=== PATIENT | female | born 1940 | race Two or more races ===

== ENCOUNTER 2019-01-29 09:34 | Emergency (ER) | payer OTHER ==
[~2019-01-29] VITALS: Ht 152.4 cm; Wt 63.5 kg
[2019-01-29 10:38] LABS: Urine Bacteria MOD /hpf (None Seen); Urine Blood Negative /uL (Negative); Urine Specific Gravity 1.016 (1.001-1.035); Urine WBC 181 /hpf (0 - 5); Urine WBC Clumps PRESENT /hpf (None Seen)
[2019-01-29 11:08] VITALS: BP 143/42
[2019-01-29 11:25] LABS: Basophils # (auto) 0 uL; Basophils % (auto) 0.7 % (0.0-2.0); Eosinophils # (auto) 0.2 uL; Eosinophils % (auto) 2.4 % (0.0-7.0); Hematocrit 37.2 % (36.0-46.0); Lymphocytes # (auto) 1.3 uL; Lymphocytes % (auto) 19.8 % (10.0-50.0); Mean Corpuscular Hemoglobin 32.5 pg (28.0-32.0); Mean Corpuscular Hgb Conc. 34.8 g/dL (32.0-36.0); Mean Corpuscular Volume 93.5 fL (80.0-100.0); Monocytes # (auto) 0.5 uL; Neutrophils # (auto) 4.5 uL; Neutrophils % (auto) 69.1 % (37.0-80.0); Nucleated Red Blood Cells % 0.1 %; Platelet Count (auto) 179 10^3/uL (140-450); Red Blood Cells 3.98 10^6/uL (4.0-5.20); Red Cell Distribution Width 12.8 % (11.8-14.3); White Blood Cell 6.5 10^3/uL (4.4-10.8)
[2019-01-29 11:42] LABS: Albumin 3.5 g/dL (3.4-5.0); Potassium 4.7 mmol/L (3.5-5.1)
[2019-01-29 11:45] LABS: BUN/Creatinine Ratio 26.4; Bilirubin, Total 0.3 mg/dL (0.2-1.0); Total Protein 8.1 g/dL (6.4-8.2)
== END 2019-01-29 12:20 | disposition home or self-care (01) ==
LOC: ER 09:40
DX: N39.0 Urinary tract infection, site not specified (principal); E11.9 Type 2 diabetes mellitus without complications; I10 Essential (primary) hypertension; Z90.49 Acquired absence of other specified parts of digestive tract
CPT/HCPCS: 36415; 80053; 81001; 85025

== ENCOUNTER 2020-01-07 12:30 | Inpatient (IN) | payer OTHER ==
[~2020-01-07] VITALS: Ht 154.9 cm; Wt 67.4 kg
[2020-01-07] MEDS ORDERED: SODIUM CHLORIDE 0.9% 500 ML IV ONE (12:55)
[2020-01-07 14:44] LABS: Basophils # (auto) 0 10 ^3/uL (0-0.2); Basophils % (auto) 0.1 % (0.0-2.0); Eosinophils # (auto) 0.2 10 ^3/uL (0-0.8); Eosinophils % (auto) 2.4 % (0.0-7.0); Hematocrit 36.1 % (36.0-46.0); Hemoglobin 12.4 g/dL (12.2-16.2); Lymphocytes % (auto) 11.5 % (10.0-50.0); Mean Corpuscular Hemoglobin 31.9 pg (28.0-32.0); Mean Corpuscular Hgb Conc. 34.3 g/dL (32.0-36.0); Monocytes # (auto) 0.6 10 ^3/uL (0-1.3); Monocytes % (auto) 6.6 % (0.0-12.0); Neutrophils # (auto) 6.7 10 ^3/uL (1.6-8.6); Neutrophils % (auto) 79.4 % (37.0-80.0); Platelet Count (auto) 229 10^3/uL (140-450); Red Blood Cells 3.88 10^6/uL (4.0-5.20); Red Cell Distribution Width 13.4 % (11.8-14.3); White Blood Cell 8.4 10^3/uL (4.4-10.8)
[2020-01-07 14:47] LABS: Alanine Aminotransferase 37 U/L (13-56); Albumin 2.8 g/dL (3.4-5.0); Anion Gap 6 (5-15); Aspartate Aminotransferase 37 U/L (15-37); Blood Urea Nitrogen 29 mg/dL (7-18); Calcium 8.6 mg/dL (8.5-10.1); Carbon Dioxide 25 mmol/L (21-32); Chloride 101 mmol/L (98-107); GFR African American 55 mL/min; GFR Non-African American 45 mL/min; Glucose 226 mg/dL (74-106); Potassium 4.5 mmol/L (3.5-5.1); Sodium 132 mmol/L (136-145)
[2020-01-07 14:52] LABS: Alkaline Phosphatase 178 U/L (45-117); Bilirubin, Total 0.4 mg/dL (0.2-1.0); Total Protein 8.5 g/dL (6.4-8.2)
[2020-01-07] MEDS ORDERED: MORPHINE SULF INJ 2 MG/ML SYRINGE 1ML IV PRN ×2 (16:30)
[2020-01-07] MEDS ORDERED: HYDROcodone-ACET 5/325MG TAB PO PRN (16:30)
[2020-01-07] MEDS ORDERED: DEXTROSE (50%) 50ML SYRG IV PRN (16:30)
[2020-01-07] MEDS ORDERED: ONDANSETRON HCL 4 MG/2 ML VIAL IV PRN (16:30)
[2020-01-07] MEDS ORDERED: NITROGLYCERIN 0.4 MG SL TAB SL PRN (16:30)
[2020-01-07 16:58] LABS: Cholesterol 117 mg/dL (< 200); Triglycerides 115 mg/dL (< 150)
[2020-01-07 17:00] LABS: HDL Cholesterol 43 mg/dL (40-59); LDL Cholesterol 59 mg/dL (< 100)
[2020-01-07] MEDS: SODIUM CHLORIDE 0.9% 1,000 ML IV SCH (19:08)
[2020-01-07] MEDS: InsuLIN REG 1unit/0.01ml Soln (100units/ml) SC SCH ×2 (19:23→21:52)
[2020-01-07] MEDS: ACCU-CHEK COMFORT CURVE STRIP VI SCH ×2 (19:23→21:49)
[2020-01-07] MEDS ORDERED: TRAZ50TA2 PO (22:25)
[2020-01-07] MEDS ORDERED: LEVO50TA7 PO (22:25)
[2020-01-07] MEDS ORDERED: LOVA20TA4 PO (22:25)
[2020-01-07 22:27] VITALS: BP 127/50
[2020-01-07 23:19] LABS: Urine Blood Negative /uL (Negative)
[2020-01-07 23:39] LABS: Urine Bacteria MOD /hpf (None Seen); Urine WBC 122 /hpf (0 - 5); Urine WBC Clumps PRESENT /hpf (None Seen)
[2020-01-08 05:30] VITALS: BP 126/59
[2020-01-08] MEDS: SODIUM CHLORIDE 0.9% 1,000 ML IV SCH ×2 (05:35→10:33)
[2020-01-08] MEDS: ACCU-CHEK COMFORT CURVE STRIP VI SCH ×4 (06:31→21:35)
[2020-01-08] MEDS: InsuLIN REG 1unit/0.01ml Soln (100units/ml) SC SCH ×4 (06:32→21:49)
[2020-01-08 07:58] LABS: Basophils # (auto) 0 10 ^3/uL (0-0.2); Basophils % (auto) 0.2 % (0.0-2.0); Eosinophils # (auto) 0.3 10 ^3/uL (0-0.8); Eosinophils % (auto) 4.4 % (0.0-7.0); Hematocrit 32.9 % (36.0-46.0); Hemoglobin 11.5 g/dL (12.2-16.2); Lymphocytes # (auto) 1.5 10 ^3/uL (0.4-5.4); Mean Corpuscular Hemoglobin 31.9 pg (28.0-32.0); Mean Corpuscular Hgb Conc. 35.1 g/dL (32.0-36.0); Mean Corpuscular Volume 90.8 fL (80.0-100.0); Monocytes # (auto) 0.7 10 ^3/uL (0-1.3); Monocytes % (auto) 9.5 % (0.0-12.0); Neutrophils # (auto) 4.4 10 ^3/uL (1.6-8.6); Neutrophils % (auto) 63.9 % (37.0-80.0); Platelet Count (auto) 250 10^3/uL (140-450); Red Blood Cells 3.62 10^6/uL (4.0-5.20); Red Cell Distribution Width 13.7 % (11.8-14.3); White Blood Cell 6.9 10^3/uL (4.4-10.8)
[2020-01-08 08:14] LABS: BUN/Creatinine Ratio 18.7; Calcium 8.5 mg/dL (8.5-10.1)
[2020-01-08 09:00] VITALS: BP 144/60
[2020-01-08] MEDS: PANTOPRAZOLE 40 MG TAB PO SCH (10:12)
[2020-01-08] MEDS: cefTRIAXone 1GM/50ML D5W 50 ML IV SCH (10:12)
[2020-01-08 13:00] VITALS: BP 145/64
[2020-01-08 17:00] VITALS: BP_SYST 127; BP_SYST 134; BP_DIAS 53; BP_DIAS 58; BP_DIAS 70
[2020-01-08] MEDS: INSULIN LANTUS (GLARGINE) 1 /0.01ml (100units/ml) SC SCH (21:49)
[2020-01-08 22:00] VITALS: BP 154/57
[2020-01-09 05:00] VITALS: BP 146/67
[2020-01-09 05:56] LABS: BUN/Creatinine Ratio 17.4; Calcium 8.6 mg/dL (8.5-10.1); Potassium 3.8 mmol/L (3.5-5.1)
[2020-01-09] MEDS: InsuLIN REG 1unit/0.01ml Soln (100units/ml) SC SCH ×4 (06:56→22:16)
[2020-01-09] MEDS: ACCU-CHEK COMFORT CURVE STRIP VI SCH ×4 (06:56→22:17)
[2020-01-09] MEDS: SODIUM CHLORIDE 0.9% 1,000 ML IV SCH ×2 (06:56→22:22)
[2020-01-09] MEDS: PANTOPRAZOLE 40 MG TAB PO SCH (08:33)
[2020-01-09] MEDS: cefTRIAXone 1GM/50ML D5W 50 ML IV SCH (08:33)
[2020-01-09] MEDS: ACETAMINOPHEN 500 MG TAB PO PRN (08:45)
[2020-01-09 09:00] VITALS: BP 130/63
[2020-01-09 12:00] VITALS: BP 153/81
[2020-01-09 12:45] VITALS: BP 145/69
[2020-01-09] MEDS ORDERED: hydrALAZINE HCL 25 MG TAB PO PRN (12:45)
[2020-01-09 17:00] VITALS: BP 140/66
[2020-01-09 21:00] VITALS: BP_SYST 0; BP_SYST 151; BP_DIAS 73
[2020-01-09] MEDS: INSULIN LANTUS (GLARGINE) 1 /0.01ml (100units/ml) SC SCH (22:17)
[2020-01-10 05:00] VITALS: BP_SYST 0; BP_SYST 147; BP_DIAS 64
[2020-01-10] MEDS: InsuLIN REG 1unit/0.01ml Soln (100units/ml) SC SCH ×3 (06:20→17:00)
[2020-01-10] MEDS: ACCU-CHEK COMFORT CURVE STRIP VI SCH ×3 (06:20→17:00)
[2020-01-10] MEDS: ACETAMINOPHEN 500 MG TAB PO PRN (08:24)
[2020-01-10] MEDS: PANTOPRAZOLE 40 MG TAB PO SCH (08:24)
[2020-01-10] MEDS: cefTRIAXone 1GM/50ML D5W 50 ML IV SCH (08:24)
[2020-01-10 09:00] VITALS: BP 147/64
[2020-01-10] MEDS: SODIUM CHLORIDE 0.9% 1,000 ML IV SCH (11:45)
[2020-01-10 13:00] VITALS: BP 159/61
[2020-01-10] MEDS ORDERED: CEFU250T68 PO (15:32)
[2020-01-10 16:20] VITALS: BP 149/62
== END 2020-01-10 17:20 | disposition home or self-care (01) | DRG 640 ==
LOC: EDBD 12:30 → ER 12:30 → TELE 12:31 → TELE-WESTW 20:49
PROVIDERS: ADMIT Nurse Practitioner Acute Care; ATTEND Internal Medicine
DX: E86.0 Dehydration (principal); N17.0 Acute kidney failure with tubular necrosis; N39.0 Urinary tract infection, site not specified; E44.0 Moderate protein-calorie malnutrition; I13.0 Hypertensive heart and chronic kidney disease with heart failure and stage 1 through stage 4 chronic kidney disease, or unspecified chronic kidney disease; R55 Syncope and collapse; R53.1 Weakness; N18.3 Chronic kidney disease, stage 3 (moderate); E78.5 Hyperlipidemia, unspecified; E11.22 Type 2 diabetes mellitus with diabetic chronic kidney disease; E78.00 Pure hypercholesterolemia, unspecified; E03.9 Hypothyroidism, unspecified; E11.649 Type 2 diabetes mellitus with hypoglycemia without coma; Z68.28 Body mass index [BMI] 28.0-28.9, adult; Z90.49 Acquired absence of other specified parts of digestive tract
CPT/HCPCS: 36415; 70450; 71045; 80048; 80053; 80061; 81001; 82962; 83036; 83735; 84443; 84484; 85025; 87086; 87088; 87186; 93005; 93306; 93886; 96360; 96361; 97163; G0378; J0696; J1815

== ENCOUNTER 2024-04-29 17:04 | Emergency (ER) | payer OTHER, MEDICAID ==
[~2024-04-29] VITALS: Ht 144.8 cm; Wt 51.0 kg
[~2024-04-29 17:04] MED LIST: CEFU250T68 PO; LEVO50TA7 PO; LOVA20TA4 PO; TRAZ-227 PO
[2024-04-29 18:51] LABS: Basophils # (auto) 0 10 ^3/uL (0-0.2); Basophils % (auto) 0.2 % (0.0-2.0); Eosinophils # (auto) 0.1 10 ^3/uL (0-0.8); Eosinophils % (auto) 1.3 % (0.0-7.0); Hematocrit 31.4 % (36.0-46.0); Hemoglobin 11.2 g/dL (12.2-16.2); Lymphocytes # (auto) 1.8 10 ^3/uL (0.4-5.4); Lymphocytes % (auto) 25.6 % (10.0-50.0); Mean Corpuscular Hemoglobin 31.1 pg (28.0-32.0); Mean Corpuscular Hgb Conc. 35.7 g/dL (32.0-36.0); Mean Corpuscular Volume 87.1 fL (80.0-100.0); Monocytes # (auto) 0.7 10 ^3/uL (0-1.3); Monocytes % (auto) 9.8 % (0.0-12.0); Neutrophils # (auto) 4.4 10 ^3/uL (1.6-8.6); Neutrophils % (auto) 63.1 % (37.0-80.0); Red Cell Distribution Width 13.6 % (11.8-14.3); White Blood Cell 6.9 10^3/uL (4.4-10.8)
[2024-04-29] MEDS: SODIUM CHLORIDE 0.9% 1,000 ML IV ONE (19:00)
[2024-04-29] MEDS: ONDANSETRON HCL 4 MG/2 ML VIAL IV ONE (19:00)
[2024-04-29 19:08] LABS: Alanine Aminotransferase 18 U/L (7-40); Albumin 3.8 g/dL (3.2-4.8); Alkaline Phosphatase 153 U/L (46-116); Anion Gap 10 (5-15); Aspartate Aminotransferase 24 U/L (13-40); BUN/Creatinine Ratio 13.3 (10.0-20.0); Blood Urea Nitrogen 12 mg/dL (9-23); Calcium 9.4 mg/dL (8.7-10.4); Carbon Dioxide 24 mmol/L (20-30); Chloride 105 mmol/L (98-107); Glucose 157 mg/dL (74-106); Potassium 3.5 mmol/L (3.5-5.1); Sodium 139 mmol/L (136-145)
[2024-04-29 19:09] LABS: Bilirubin, Total 0.4 mg/dL (0.2-1.0); Total Protein 7.1 g/dL (5.7-8.2)
[2024-04-29] MEDS: IOHEXOL 300 MG/ML 100ML BOTTLE IJ ONE (20:37)
[2024-04-29] MEDS ORDERED: LOPE2CAP2 PO (23:11)
[2024-04-29] MEDS ORDERED: LOPERAMIDE HCL 2 MG CAP/TAB PO ONE (23:15)
[2024-04-29] MEDS ORDERED: METR-344 PO (23:22)
[2024-04-29] MEDS ORDERED: CIPR-173 PO (23:22)
[2024-04-30 00:15] VITALS: BP 181/58; PULSE 68; RESP 14; TEMP 98.1; O2SAT 98
[2024-04-30] MEDS: metroNIDAZOLE 500 MG TAB PO ONE (00:16)
[2024-04-30] MEDS: CIPROFLOXACIN HCL 500 MG TAB PO ONE (00:16)
[2024-04-30] MEDS: PANTOPRAZOLE 40 MG/10 ML VIAL INJ IV ONE (00:16)
== END 2024-04-30 00:24 | disposition home or self-care (01) ==
LOC: ER 17:04
DX: E86.0 Dehydration (principal); R19.7 Diarrhea, unspecified; R53.1 Weakness; E11.9 Type 2 diabetes mellitus without complications; E78.5 Hyperlipidemia, unspecified; I10 Essential (primary) hypertension; E03.9 Hypothyroidism, unspecified; Z79.899 Other long term (current) drug therapy
CPT/HCPCS: 36415; 74177; 80053; 82962; 85025; 96374; 99285; J2470; Q9967